=== PATIENT | male | born 2005 | race Caucasian/White ===

== ENCOUNTER 2024-01-20 20:51 | Emergency (ER) | payer OTHER, SELFPAY ==
[2024-01-20 20:55] VITALS: BP 133/80
--- NOTE | 2024-01-20 21:05 | ED.GENMED ---
History of Present Illness
General
Chief Complaint: Chest Pain
Time Seen by Provider: 01/20/24 21:05
History of Present Illness
History of Present Illness:
HPI: Cough over the past week. No rhinorhea. No fevers. Some chest discomfort and SOB 2d ago - worsened today. COVID negative 2d ago at home. He went to urgent care at [facility] where they felt he might have pneumonia and was placed on azithromycin.
He did take first dose of azithromycin this evening. When he tried to lay flat his symptoms seem to worsen. He was concerned that there was something more serious though he came in here for further evaluation.
EXAM:
GENERAL: Well appearing in no distress
HEENT: Moist oral mucosa
CARDIOVASCULAR: No murmurs, normal heart rate, regular rhythm, No chest wall tenderness, I hear no friction rub
PULMONARY: No respiratory distress, breath sounds are clear and equal, I hear no wheeze
ABDOMEN: Soft with no peritoneal signs, no tenderness
NEUROLOGIC: Excellent strength all extremities, no coordination deficits
PSYCHIATRIC: Appropriate mental status, normal insight and judgement
EXTREMITIES: Nontender, no edema, moves all extremities equally
SKIN: No rash, no lesions
TIME OF INITIAL ENCOUNTER: 9:30 PM
NUMBER AND COMPLEXITY OF PROBLEMS ADDRESSED AT THE ENCOUNTER
� Chronic conditions affecting care: No significant past medical history
� Acute Exacerbation and/or Progression of Chronic Illness: This is an acute problem
� Differential Diagnosis includes: Viral syndrome, bronchitis, pneumonia, pericarditis
AMOUNT AND/OR COMPLEXITY OF DATA TO BE REVIEWED AND ANALYZED
� I performed an independent evaluation of and my interpretation is:
EKG: Sinus 82, leftward axis deviation, no acute ST abnormality
CT:
X-rays: Chest x-ray personally reviewed in which I suspect a possible subtle opacification at the left base however this was not confirmed by radiology
Laboratory Studies:
Other:
� Review of other/old records: The patient had left upper extremity ultrasound in 2019 that was unremarkable
� Clinical information was obtained by an independent historian: I spoke to mother
� Prescriptions/Medications Considered but not given:
� Further testing considered but not performed:
RISK OF COMPLICATIONS AND/OR MORBIDITY OR MORTALITY OF PATIENT MANAGEMENT
� Social determinants of health affecting care:
� Discussion with other providers:
� Escalation of care including admission/observation vs risk of discharge considered: On reassessment, after Toradol and neb given, he overall feels somewhat improved. He is well-appearing at time of discharge. Chest x-ray read
by radiology as unremarkable. Suspect more of a viral syndrome. Will add steroids. The patient has had asthma in the past but is felt to no longer have asthma according to PMD.
Phy Exam
Physical Exam
Physical Exam:
See HPI
Scores
Heart Score for Chest Pain Patients
STEMI patient?: Not applicable
Course
Orders/Labs/Results
Orders:
Orders
01/20/24 21:02
Electrocardiogram (*1) Urgent
Reason for Study: Chest Pain
EKG- Treatment ONCE
01/20/24 21:06
CR Chest - 2 Views Urgent
Comment:
Reason For Exam: cough cp
01/20/24 21:31
Ipratropium/Albuterol Sulfate [Duoneb] 3 ml INH R NOW ONE
Ketorolac [Toradol] 30 mg IM NOW STA
Vital Signs
Initial and Last Documented VS:
Initial Vital Signs
Temp Pulse BP Pulse Ox
98.4 F 84 133/80 100
01/20/24 20:55 01/20/24 20:55 01/20/24 20:55 01/20/24 20:55
Last Documented Vital Signs
Temp Pulse Resp BP Pulse Ox
98.4 F 80 11 133/80 95
01/20/24 20:55 01/20/24 22:43 01/20/24 22:43 01/20/24 20:55 01/20/24 22:52
*Critical Care Note
Total Time (30-74mins, 75-104mins- exclusive of procedures): Not Applicable
ED Attending Note
-
Portions of this chart may have been created with voice recognition software.� Occasional wrong word or��sound alike� substitutions may have occurred due to the inherent limitations of voice recognition software.
Discharge Plan
Departure
Patient Disposition: Home (Routine Discharge)
Date of Disposition: 01/20/24
Time of Disposition: 22:57
Patient with high blood pressure during this ER visit?: Yes
Discharge Problem:
Bronchitis
Instructions: Acute bronchitis, Costochondritis (DC)
Prescriptions:
New
prednisone 50 mg tablet
50 mg PO DAILY Qty: 5 0RF
Referrals:
Musa Rodríguez MD [Family Provider] -
Activity Restrictions/Additional Instructions:
When I looked at your chest x-ray I thought there might be a subtle pneumonia on the left side however the radiologist reviewed your chest x-ray and does not think that you have pneumonia. Regardless, I feel it would be appropriate to continue the
azithromycin as previously prescribed. Your symptoms very well may be related to a viral bronchitis. We can also add some steroid medication to help further decrease inflammation which may also help the pain. I am sending a prescription for
prednisone to your pharmacy for you to start in the morning. Return here if worse.
Interventions
Interventions:
*Risk Screen - Suicide Last Done: 01/20/24 22:44
*General Assessment Last Done: 01/20/24 22:44
*Neglect/Abuse Screening Last Done: 01/20/24 22:44
ED- Fall Risk Assessment Last Done: 01/20/24 22:44
*ED COVID-19 Vaccine History Last Done: 01/20/24 22:44
ED- Cardiac Assessment Last Done: 01/20/24 22:44
Discharge Date and Time
Print Language: JORDANIAN
[2024-01-20] MEDS: DUONEB 3 ML INH (22:40)
[2024-01-20] MEDS: TORADOL 30 MG IM (22:41)
[2024-01-20 23:00] VITALS: BP 142/80
== END 2024-01-20 23:10 | disposition home or self-care (01) ==
LOC: EMR 20:51
PROVIDERS: EMERGENCY PHYSICIAN Emergency Medicine; FAMILY PHYSICIAN Pediatrics Adolescent Medicine
DX: J20.9 Acute bronchitis, unspecified (principal); R03.0 Elevated blood-pressure reading, without diagnosis of hypertension
CPT/HCPCS: 99284; 94640; 96372; 71046; 93005

== ENCOUNTER 2024-01-29 11:39 | Emergency (ER) | payer OTHER, SELFPAY ==
[2024-01-29 11:41] VITALS: BP 133/81
[2024-01-29] MEDS: NSS 500 IV (12:53)
[2024-01-29] MEDS: DECADRON 10 MG IV (12:55)
[2024-01-29] MEDS: DUONEB 3 ML INH (12:56)
[2024-01-29 13:19] LABS: % Basophils 0.7 % (0-2); % Eosinophils 5.8 % (0-6); % Immature Granulocytes 0.7 % (0-0.5); % Lymphocytes 29.9 % (20.5-51.1); % Monocytes 7.6 % (1.7-9.3); % Neutrophils 55.3 % (42.2-75.2); Absolute Basophils 0.1 10^3/uL (0-0.2); Absolute Eosinophils 0.5 10^3/uL (0-0.7); Absolute Immature Granulocytes 0.1 10^3/uL (0-0.05); Absolute Lymphocytes 2.6 10^3/uL (1.2-3.4); Absolute Monocytes 0.7 10^3/uL (0.1-0.6); Absolute Neutrophils 4.7 10^3/uL (1.4-6.5); Hematocrit 44.8 % (39.0-52.0); Hemoglobin 16.2 g/dL (13.0-18.0); Mean Corp Hgb Conc. 36.2 g/dL (33.0-37.0); Mean Corpuscular Hgb 30.2 pg (27.0-31.0); Mean Corpuscular Volume 83.6 fL (80.0-94.0); Mean Platelet Volume 9.6 fL (7.4-10.4); Nucleated Red Blood Cells % 0 % (-); Platelet Count 339 10^3/uL (130-400); Red Blood Cell Count 5.36 10^6/uL (4.70-6.10); Red Cell Dist. Width 13.1 % (11.5-14.5); White Blood Cell Count 8.6 10^3/uL (4.8-10.8)
--- NOTE | 2024-01-29 13:25 | ED.GENMED ---
History of Present Illness
General
Chief Complaint: Pneumonia Symptoms
Source: patient and family (Mother)
Exam Limitations: none
Time Seen by Provider: 01/29/24 11:48
History of Present Illness
History of Present Illness:
19-year-old male ongoing cough congestion. Some headache mostly with coughing. No fever. No photophobia. No vomiting. Was on a course of azithromycin early in this. This is been going on over a month. Seems somewhat improved on prednisone
although now has worsened since prednisone stopped.
Past History
Past History
ED Past Medical History: Asthma (As a child)
ED Past Surgical History: Other (Epidermoid cyst as a child)
Review of Systems
Review of Systems
All Other Systems: Not applicable
Constitutional: Denies fever or chills
Cardiac: Denies syncope
Phy Exam
Physical Exam
Physical Exam:
GENERAL: Alert and oriented in no apparent distress
EYE: Orbits normal.
NECK: Supple
ENT: Pharynx without erythema
CARDIAC: Regular rate and rhythm without any obvious murmurs.
LUNGS: No respiratory distress. However occasional cough. On exam diffuse expiratory wheezing and rhonchi
ABDOMEN: Soft, without focal tenderness or distention
NEUROLOGICAL: Alert and oriented , grossly non-focal
SKIN: Warm and dry, no rash or lesion, no discoloration, skin intact.
MUSCULOSKELETAL: No edema,no deformity.Good color
PSYCH: Normal and appropriate interaction.
Course
Orders/Labs/Results
Orders:
Orders
01/29/24 11:48
CR Chest - 2 Views Urgent
Comment:
Reason For Exam: cough, SOB
01/29/24 12:41
IV Insert/Care/Rem.- Treatment PRN
0.9% Sodium Chloride 500 ml [Nss] 500 ml IV BOLUS
Dexamethasone Sod Phosphate [Decadron] 10 mg IV NOW STA
Ipratropium/Albuterol Sulfate [Duoneb] 3 ml INH R NOW STA
01/29/24 12:52
Basic Metabolic Panel Urgent
Complete Blood Count/With Diff Urgent
D-Dimer Urgent
Abnormal Lab Results
01/29/24
12:52
Abs Immat Gran (auto) 0.1 H 10^3/uL
(0-0.05)
Absolute Monos (auto) 0.7 H 10^3/uL
(0.1-0.6)
Immature Gran % 0.7 H %
(0-0.5)
01/29/24 12:52
01/29/24 12:52
Vital Signs
Initial and Last Documented VS:
Initial Vital Signs
Temp Pulse Resp BP Pulse Ox
97.6 F 103 22 133/81 95
01/29/24 11:41 01/29/24 11:41 01/29/24 11:41 01/29/24 11:41 01/29/24 11:41
Last Documented Vital Signs
Temp Pulse Resp BP Pulse Ox
97.6 F 88 16 133/81 97
01/29/24 11:41 01/29/24 12:02 01/29/24 14:04 01/29/24 11:41 01/29/24 14:04
MDM/Problems Addressed
Differential Diagnosis Includes:
Patient with expiratory wheezing and rhonchi. Clearly has airway inflammation. Nontoxic. No respiratory distress. Likely prolonged viral issue although could be an atypical bacteria. Clearly warrants more steroids. Will do a D-dimer for
completeness.
*Radiology
Radiology exam reviewed: preliminary read by ED provider (Negative x-ray) and radiology read reviewed (Small airway inflammation)
*Pulse Oximetry
Patient hypoxic: no
*Critical Care Note
Total Time (30-74mins, 75-104mins- exclusive of procedures): Not Applicable
Data Reviewed
Review of Other/Old Records Reveals: Labs, Radiology Studies and Testing
Update Note
Update Note:
Patient doing well. No distress. Lungs are improved. Prolonged course of steroids, will cover for atypical bacteria and follow-up
ED Attending Note
-
Portions of this chart may have been created with voice recognition software.� Occasional wrong word or��sound alike� substitutions may have occurred due to the inherent limitations of voice recognition software.
Discharge Plan
Departure
Patient Disposition: Home (Routine Discharge)
Date of Disposition: 01/29/24
Time of Disposition: 14:29
Patient with high blood pressure during this ER visit?: Yes
Discharge Problem:
Persistent asthmatic bronchitis
Instructions: Acute Bronchitis, Adult (DC), Shortness of Breath (Dyspnea) (DC)
Prescriptions:
New
doxycycline hyclate 100 mg capsule
100 mg PO BID 10 Days Qty: 20 0RF
Pulmicort Flexhaler 180 mcg/actuation aerosol powdr breath activated
1 inh inhalation BID Qty: 1 0RF
prednisone 10 mg tablet
10 mg PO DAILY Qty: 20 0RF
Rx Instructions:
4 tablets day 1. Then 1 less tablet every other day until gone
albuterol sulfate 90 mcg/actuation HFA aerosol inhaler
2 inh inhalation Q4H PRN (Reason: shortness of breath or wheezing) Qty: 8.5 0RF
No Action
prednisone 50 mg tablet
50 mg PO DAILY Qty: 5 0RF
Referrals:
Musa Rodríguez MD [Family Provider] - Follow up in 2-3 days
Activity Restrictions/Additional Instructions:
You are 4 prescriptions were sent to your pharmacy
Follow-up closely with your primary physician
Return with any concerns including increased shortness of breath chest pain high fever or if symptoms or not improving in 2 to 3 days
Interventions
Interventions:
*Risk Screen - Suicide Last Done: 01/29/24 11:41
*General Assessment Last Done: 01/29/24 11:41
*Neglect/Abuse Screening Last Done: 01/29/24 11:41
*ED COVID-19 Vaccine History Last Done: 01/29/24 12:05
ED- Cardiac Assessment Last Done: 01/29/24 12:05
ED- Pulmonary Assessment Last Done: 01/29/24 12:05
Discharge Date and Time
Print Language: [id number]
[2024-01-29 13:32] LABS: D-Dimer 0.29 ug/mlFEU (0.00-0.50)
[2024-01-29 13:37] LABS: Blood Urea Nitrogen 17 mg/dl (9-20); Calcium 10.1 mg/dl (8.4-10.2); Carbon Dioxide 26 mmol/L (22-30); Chloride 101 mmol/L (98-107); Glucose 88 mg/dl (70-99); Potassium 4.6 mmol/L (3.5-5.1); Sodium 136 mmol/L (135-145); eGFR > 60.00
[2024-01-29 14:44] VITALS: BP 128/74
== END 2024-01-29 14:48 | disposition home or self-care (01) ==
LOC: EMR 11:39
PROVIDERS: EMERGENCY PHYSICIAN Emergency Medicine; FAMILY PHYSICIAN Pediatrics Adolescent Medicine
DX: J45.909 Unspecified asthma, uncomplicated (principal); R03.0 Elevated blood-pressure reading, without diagnosis of hypertension
CPT/HCPCS: 99284; 96374; 96361; 94640; 71046; 80048; 85025; 85379

== ENCOUNTER → 2024-03-01 17:37 | Outpatient (REF) | payer OTHER, SELFPAY | LOC: RAD 17:37 | PROVIDERS: ATTENDING PHYSICIAN Pediatrics Adolescent Medicine | DX: J15.7 Pneumonia due to Mycoplasma pneumoniae (principal) | CPT/HCPCS: 71046 ==